=== PATIENT | male | born 1940 | race Caucasian/White ===

== ENCOUNTER 2019-05-21 17:57 | Emergency (ER) | payer MEDICARE ==
--- NOTE | 2019-05-21 18:31 | EDM.PDOC ---
ED HPI GENERAL MEDICAL PROBLEM - General Chief Complaint: General Stated Complaint: HIGH BLOOD PRESSURE Time Seen by Provider: 05/21/19 18:26 Source of Information: Reports: Patient History Limitations: Reports: No Limitations - History of Present Illness INITIAL COMMENTS - FREE TEXT/NARRATIVE: 78-year-old male presents to the ED with concern about elevated systolic blood pressure. His chronic hypertension he is usually controlled well with atenolol 25 mg once daily and Norvasc 5 mg once daily. His blood pressure was as high as 196 systolic. The diastolic is always been under 85. He had it checked at his [id number] is a nurse that's where he went for supper. It was around 176 systolic there. At the walk-in clinic where he went to seek medical care is systolic blood pressure was in the high 150s. He relates down to 148/82. Is better now too. He did take his atenolol earlier today he took it around 1600 hrs. today usually takes it after supper or bedtime. He denies headache. 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 This was 19 years ago 2 in the year 1999. He had bad headaches for good 6 months after this. He's been in [place] for the last 6 months and has an appointment to see Dr. Noland whom has been his primary care physician when he is back in [place] next . He has type 2 diabetes controlled with metformin. He doesn 't usually check his blood sugars. His weight has been stable. He states he does feel better at this point time. It appears that his elevated blood pressure at home made him quite anxious. He has written down his blood pressure recordings however for the last several weeks and they are around 155 systolic indicating that he could achieve a little better control. Diastolics are all under 85. He notices a little fluid around his sock rings at bedtime only. He denies any vertigo symptoms he denies any blurred vision. He denies any headache. Although he states he did have some cervical neck pain which is chronic for him improved with ICY/Hot salve fly into his neck this afternoon. Denies palpitations. Onset: Today Onset Date: 05/21/19 (Elevated blood pressure recordings 3 today. Was 196 systolic at home.) Duration: Hour(s): Location: Reports: Generalized (Generally felt ill earlier today but feels better now after), Other Quality: Reports: Other ([place] kind of achy particularly in his neck back but no nausea or vomiting.) Severity: Mild Improves with: Reports: Other (He seems to be much better less anxious since his blood pressure has come under control.) Worsens with: Reports: None Context: Denies: Activity, Exercise, Lifting, Sick Contact, Trauma, Other Associated Symptoms: Reports: Rash, Seizure, Shortness of Breath, Syncope, Weakness. 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 today which he usually takes after supper.) - Related Data Allergies Allergy/AdvReac Type Severity Reaction Status Date / Time No Known Allergies Allergy Verified 05/21/19 18:10 Home Meds: Home Meds Aspirin 81 mg PO DAILY 05/21/19 [History] Atenolol 50 mg PO DAILY 05/21/19 [History] Cyanocobalamin (Vitamin B-12) [Cyanocobalamin Injection] 1,000 mcg IJ ASDIRECTED 05/21/19 [History] Ibuprofen [Advil] 200 mg PO BID PRN 05/21/19 [History] Ibuprofen/Diphenhydramine Cit [Advil Pm Caplet] 1 each PO BEDTIME 05/21/19 [ History] Losartan Potassium 100 mg PO DAILY 05/21/19 [History] Melatonin 10 mg PO BEDTIME 05/21/19 [History] Multivitamin [Multivitamins] 1 each PO DAILY 05/21/19 [History] Omeprazole 20 mg PO DAILY 05/21/19 [History] Simvastatin [Zocor] 40 mg PO BEDTIME 05/21/19 [History] amLODIPine [Norvasc] 5 mg PO DAILY 05/21/19 [History] metFORMIN HCl [Metformin HCl] 500 mg PO BIDMEALS 05/21/19 [History] Past Medical History HEENT History: Reports: Other (See Below) Other HEENT History: glasses Cardiovascular History: Reports: Hypertension Gastrointestinal History: Reports: Other (See Below) Other Gastrointestinal History: gi surgery Musculoskeletal History: Reports: Other (See Below) Other Musculoskeletal History: neck surgery, bilateral knee scopes Neurological History: Reports: Other (See Below) Other Neuro History: 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 Question whether this was related to uncontrolled hypertension. He was treated conservatively. Endocrine/Metabolic History: Reports: Diabetes, Type II (He is on metformin daily.) Social & Family History - Tobacco Use Smoking Status *Q: Never Smoker Second Hand Smoke Exposure: No - Caffeine Use Caffeine Use: Reports: Tea - Recreational Drug Use Recreational Drug Use: No - Living Situation & Occupation Living situation: Reports: Occupation: Retired ED ROS GENERAL - Review of Systems Review Of Systems: See Below Constitutional: Reports: Malaise, Weakness, Fatigue, Decreased Appetite. Denies : Fever, Chills, Weight Loss HEENT: Reports: Glasses Respiratory: Denies: Shortness of Breath, Wheezing, Pleuritic Chest Pain, Cough , Sputum Cardiovascular: Reports: Blood Pressure Problem, Edema. Denies: Chest Pain, Claudication, Dyspnea on Exertion (Trace edema usually around his socks in the nighttime.), Lightheadedness (See history of present), Orthopnea, Palpitations Endocrine: Reports: Fatigue GI/Abdominal: Reports: No Symptoms : Reports: Frequency, Other (Usually nocturia 2.) Musculoskeletal: Reports: Neck Pain ( Is a lumbar corset to support his back. chronic cervical neck pain from degenerative arthritis. ), Back Pain ( Chronic low back pain since being bucked off a horse 40 years ago. unclear whether he suffered any significant pelvic fractures or lumbar spine fractures at that time.) Skin: Reports: No Symptoms Neurological: Reports: No Symptoms. Denies: Confusion, Dizziness, Headache, Numbness, Paresthesia, Pre-Existing Deficit, Seizure, Syncope, Tingling, Tremors , Trouble Speaking, Difficulty Walking, Weakness, Change in Speech, Gait Disturbance Psychiatric: Reports: Anxiety Hematologic/Lymphatic: Reports: No Symptoms Immunologic: Reports: No Symptoms ED EXAM, GENERAL - Physical Exam Exam: See Below Exam Limited By: No Limitations General Appearance: Alert, WD/WN, Anxious, Other (Mildly anxious. BP is 158/76 but came down to 148/82. Sats are 9800% on room air. Pulse was in the 70s. Maternal rate 18) Eye Exam: Bilateral Eye: Normal Inspection, PERRL Throat/Mouth: Normal Inspection, Normal Lips, Normal Oropharynx Head: Atraumatic, Normocephalic Neck: Normal Inspection, Supple, Non-Tender, Full Range of Motion. No: Carotid Bruit, Lymphadenopathy (L), Lymphadenopathy (R) Respiratory/Chest: No Respiratory Distress, Lungs Clear, Normal Breath Sounds, No Accessory Muscle Use Cardiovascular: Normal Peripheral Pulses, Regular Rate, Rhythm, No JVD, No Murmur, No Rub. No: No Edema Peripheral Pulses: 1+: Posterior Tibial (L), Posterior Tibial (R), Dorsalis Pedis (L), Dorsalis Pedis (R) GI/Abdominal: Normal Bowel Sounds, Soft, Non-Tender, No Organomegaly, No Abnormal Bruit, No Mass, Pelvis Stable Back Exam: Decreased Range of Motion. No: CVA Tenderness (L), CVA Tenderness (R ) Extremities: Pedal Edema (Trace pedal edema ankles.), Other Neurological: Alert (Evidence of mild left sensory changes both knees with loss of internal/external rotation of both hips compare with most arthritic change.) , Oriented, CN II-XII Intact, Normal Cognition Psychiatric: Normal Affect, Anxious Skin Exam: Warm, Dry, Intact (Mildly anxious.), Normal Color, No Rash EKG INTERPRETATION EKG Date: 05/21/19 Time: 19:17 Rhythm: NSR Rate (Beats/Min): 70 [place]: Normal P-Wave: Present (P-wave is inverted in V1.) QRS: Other (Initial poor R-wave progression. Decreased voltage limb leads.) ST-T: Other (T-wave flattening in aVL.) EKG Interpretation Comments: Borderline ECG Course - Vital Signs Last Recorded V/S: Last Vital Signs Temp 36.5 C 05/21/19 18:09 Pulse 71 05/21/19 18:09 Resp 18 05/21/19 18:09 BP 158/76 H 05/21/19 18:09 Pulse Ox 98 05/21/19 18:09 - Orders/Labs/Meds Orders: Active Orders 24 hr Category Date Time Status EKG Documentation Completion [RC] STAT Care 05/21/19 19:00 Active Chest 1V Frontal [CR] Stat Exams 05/21/19 19:01 Taken Labs: Laboratory Tests 05/21/19 05/21/19 05/21/19 Range/Units 19:13 19:13 19:13 WBC 9.91 H (4.23-9.07) K/mm3 RBC 4.86 (4.63-6.08) M/mm3 Hgb 14.3 (13.7-17.5) gm/dl Hct 40.9 (40.1-51.0) % MCV 84.2 (79.0-92.2) fl MCH 29.4 (25.7-32.2) pg MCHC 35.0 (32.2-35.5) g/dl RDW Std Deviation 38.7 (35.1-43.9) fL Plt Count 166 (163-337) K/mm3 MPV 10.8 (9.4-12.3) fl Neut % (Auto) 66.6 (34.0-67.9) % Lymph % (Auto) 21.7 L (21.8-53.1) % [place] % (Auto) 9.6 (5.3-12.2) % Eos % (Auto) 1.9 (0.8-7.0) Baso % (Auto) 0.2 (0.1-1.2) % Neut # (Auto) 6.60 H (1.78-5.38) K/mm3 Lymph # (Auto) 2.15 (1.32-3.57) K/mm3 [place] # (Auto) 0.95 H (0.30-0.82) K/mm3 Eos # (Auto) 0.19 (0.04-0.54) K/mm3 Baso # (Auto) 0.02 (0.01-0.08) K/mm3 Sodium 136 (136-145) mEq/L Potassium 4.4 (3.5-5.1) mEq/L Chloride 101 (98-107) mEq/L Carbon Dioxide 30 (21-32) mEq/L Anion Gap 9.4 (5-15) BUN 13 (7-18) mg/dL Creatinine 1.0 (0.7-1.3) mg/dL Est Cr Clr Drug Dosing 57.95 mL/min Estimated GFR (MDRD) > 60 (>60) mL/min BUN/Creatinine Ratio 13.0 L (14-18) Glucose 126 H (83-115) mg/dL Hemoglobin A1c 6.30 H (4.50-6.20) % Calcium 9.3 (8.5-10.1) mg/dL Magnesium 1.8 (1.8-2.4) mg/dl Total Bilirubin 0.5 (0.2-1.0) mg/dL AST 15 (15-37) U/L ALT 17 (16-63) U/L Alkaline Phosphatase 96 (46-116) U/L Troponin I < 0.017 (0.00-0.056) ng/mL C-Reactive Protein < 0.2 (<1.0) mg/dL NT-Pro-B Natriuret Pep (0-450) pg/mL Total Protein 7.1 (6.4-8.2) g/dl Albumin 3.8 (3.4-5.0) g/dl Globulin 3.3 gm/dL Albumin/Globulin Ratio 1.2 (1-2) Cholesterol 123 (<200) mg/dL LDL Cholesterol Direct 74 (<100) mg/dL HDL Cholesterol 35.0 L (40-59) mg/dL 05/21/19 Range/Units 19:13 WBC (4.23-9.07) K/mm3 RBC (4.63-6.08) M/mm3 Hgb (13.7-17.5) gm/dl Hct (40.1-51.0) % MCV (79.0-92.2) fl MCH (25.7-32.2) pg MCHC (32.2-35.5) g/dl RDW Std Deviation (35.1-43.9) fL Plt Count (163-337) K/mm3 MPV (9.4-12.3) fl Neut % (Auto) (34.0-67.9) % Lymph % (Auto) (21.8-53.1) % [place] % (Auto) (5.3-12.2) % Eos % (Auto) (0.8-7.0) Baso % (Auto) (0.1-1.2) % Neut # (Auto) (1.78-5.38) K/mm3 Lymph # (Auto) (1.32-3.57) K/mm3 [place] # (Auto) (0.30-0.82) K/mm3 Eos # (Auto) (0.04-0.54) K/mm3 Baso # (Auto) (0.01-0.08) K/mm3 Sodium (136-145) mEq/L Potassium (3.5-5.1) mEq/L Chloride (98-107) mEq/L Carbon Dioxide (21-32) mEq/L Anion Gap (5-15) BUN (7-18) mg/dL Creatinine (0.7-1.3) mg/dL Est Cr Clr Drug Dosing mL/min Estimated GFR (MDRD) (>60) mL/min BUN/Creatinine Ratio (14-18) Glucose (83-115) mg/dL Hemoglobin A1c (4.50-6.20) % Calcium (8.5-10.1) mg/dL Magnesium (1.8-2.4) mg/dl Total Bilirubin (0.2-1.0) mg/dL AST (15-37) U/L ALT (16-63) U/L Alkaline Phosphatase (46-116) U/L Troponin I (0.00-0.056) ng/mL C-Reactive Protein (<1.0) mg/dL NT-Pro-B Natriuret Pep 177 (0-450) pg/mL Total Protein (6.4-8.2) g/dl Albumin (3.4-5.0) g/dl Globulin gm/dL Albumin/Globulin Ratio (1-2) Cholesterol (<200) mg/dL LDL Cholesterol Direct (<100) mg/dL HDL Cholesterol (40-59) mg/dL - Radiology Interpretation Free Text/Narrative:: 78-year-old male attends the ED after being sent over from the walk-in clinic. Patient has a history of chronic hypertension. He checked his blood pressure at home today because he wasn't feeling well and he got a systolic blood pressure 196. Is much higher than his norm which is been in the 150s. He went to his [id number] for supper and she was a PA. She states his systolic blood pressure was 176. Advised him to go the walk-in clinic which she did. They found an elevated blood pressure in the mid septum to the ED. took his atenolol 25 mg dose at 1600 hrs. today and when he arrived here his blood pressure is 148/82. He is written down blood pressures that he's been checking over the last 2 weeks and his average systolic blood pressures been in the 150s. His diastolics are all under 85. He therefore has very mild systolic hypertension. Quite anxious in this regard as he had a previous injury of cerebral hemorrhage right frontal cortex in year 1999. He recovered from this completely. He reports he hasn't 's appointment with Dr. Noland next . He's been in [place] for the last 6 months and hasn't been following up with any doctor per se. Plan routine labs , including a glycosylated protein and his serum cholesterol as he is supposed to have labs next week prior to seeing Dr. Noland. He will have a 1 view portable chest x-ray and ECG as well. At present he requires no treatment for his blood pressure. - Re-Assessments/Exams Free Text/Narrative Re-Assessment/Exam: 05/21/19 19:51 blood pressure remains well controlled at 143/75. Chest x-ray reveals clear lung hawley. Some prominence of the right pulmonary artery appreciated. Cardiac silhouette however is within normal limits. 05/21/19 20:09 Labs reveal a normal white count at 9.91. Automated differential shows 66% neutrophils. Hemoglobin is 14.3 with hematocrit of 40.9. Platelet count 166,000. MCV is normal. Chemistry shows a sodium of 136 and a potassium of 4.4. Chloride is 101 with a bicarbonate of 30. Anion gap is 9.4. BUN is 13 with a creatinine of 1.0. GFR remains greater than 60. Glucose is 126 and his glycosylated protein is 6.30. Calcium is 9.3 with a magnesium 1.8. Liver function is normal troponin I is less than 0.017. C-reactive protein less than 0.2. Total protein is 7.1 with an albumin fraction of 3.8. Cholesterol shows 8 total of 123 and LDL of 74 and an HDL of 35.0 making his risk ratio less a little greater than 3. Therefore his labs are near perfect. Suggest continue to check his blood pressures on a daily or twice-daily basis until he sees Dr. Noland on . Leave it up to him whether or not to gradually increase his Norvasc to control mild systolic hypertension. Patient and his son were so advised. No changes made to medications at this time. Departure - Departure Time of Disposition: 20:18 Disposition: Home, Self-Care 01 Condition: Fair Clinical Impression: Labile essential hypertension - Discharge Information *PRESCRIPTION DRUG MONITORING PROGRAM REVIEWED*: Not Applicable *COPY OF PRESCRIPTION DRUG MONITORING REPORT IN PATIENT ISAIAS: Not Applicable Referrals: Alvaro Noland MD [Primary Care Provider] - Forms: ED Department Discharge Additional Instructions: Evaluation the emergency room today in regards to persistent elevation of your top number of your blood pressure called the systolic blood pressure most of the day. Is reportedly as high as 196 for a period of time. Her roommate is come down into the 140s and has remained there. I suspect this is because you took your atenolol tablet at 1600 hrs. today which starting to work by the time he came to the ED. Lab work chest x-ray, and ECG were done today and all do not show any abnormalities. There is no sign of significant heart disease related to uncontrolled blood pressure. This means for the most part your blood pressure is well controlled on current treatment regimen. Some days the blood pressure will be what we call labile which means like a roller coaster going up and down. He stays as you may have to take an extra atenolol tablet to bring it under control or take an early as you did today. His follow-up with Dr. Noland on as planned and check your blood pressures twice or 3 times daily up until you see him which will help us determine whether or not you need an adjustment of your blood pressure medication. - My Orders Last 24 Hours: My Active Orders 05/21/19 19:00 EKG Documentation Completion [RC] STAT 05/21/19 19:01 Chest 1V Frontal [CR] Stat - Assessment/Plan Last 24 Hours: My Active Orders 05/21/19 19:00 EKG Documentation Completion [RC] STAT 05/21/19 19:01 Chest 1V Frontal [CR] Stat
[2019-05-21 19:39] LABS: HEMOGLOBIN A1C 6.3 % (4.50-6.20)
--- NOTE | 2019-05-22 15:09 | CR ---
Chest: Portable view of the chest was obtained. Comparison: No prior chest x-ray. Heart size and mediastinum are within normal limits for portable technique. Lungs are clear with no acute parenchymal change. Bony structures are grossly intact. Impression: 1. Nothing acute is seen on portable chest x-ray. Diagnostic code #2
== END 2019-05-21 20:28 | disposition home or self-care (01) ==
LOC: JD.ED 17:57
DX: I10 Essential (primary) hypertension (principal); Z79.899 Other long term (current) drug therapy
CPT/HCPCS: 36415; 71045; 71045-26; 80053; 82465; 83036; 83718; 83721; 83735; 83880; 84484; 85025; 86140; 93005; 93010; 99283; 99284-25

== ENCOUNTER 2021-07-16 19:28 | Emergency (ER) | payer MEDICARE ==
--- NOTE | 2021-07-16 20:14 | EDM.PDOC ---
ED HPI GENERAL MEDICAL PROBLEM - General Chief Complaint: Respiratory Problem Stated Complaint: RESPIRATORY ISSUES Time Seen by Provider: 07/16/21 19:41 Source of Information: Reports: Patient History Limitations: Reports: No Limitations - History of Present Illness INITIAL COMMENTS - FREE TEXT/NARRATIVE: Mr. Alicea is a very pleasant 80-year-old gentleman who now presents the ED stating that he has had nasal congestion with sinus drainage causing a nonproductive cough for about 2 months, along with chest tightness. He states that he was seen at the walk-in clinic on 05/27/2021. He states that a chest x- ray was negative, but that no other tests were performed. He was prescribed Mucinex cough syrup, and also began taking sbtl-hwb-nwdptbo Robitussin. When his symptoms persisted, he saw Maegan Medina NP, in the clinic. He states that no tests were performed, but that he was prescribed an albuterol MDI, which he began using 3 or 4 times a day. He states that it did not help. He was then seen again at the walk-in clinic on 07/03/2021, where a second checks x-ray was again unremarkable. He states that no other tests were performed. He was prescribed a Z-Roberto, which he took as prescribed. He states that it did not help. The following week, he spoke with his PCP over the phone, and was prescribed a nebulizer machine. It also did not help. He was then seen a second time by Maegan Medina NP, this past 07/13/2021. He states that again no tests were done, but he was prescribed cefdinir, which he is still on. He states that he is still no better. Here in the ED this evening, the patient's initial BP was found to be elevated at 160/70, otherwise, he is hemodynamically stable, afebrile, saturating 95% on room air. He appears to be relatively comfortable, in no acute distress. The patient denies having a recent fever, chills, sore throat, ear pain, dyspnea, chest pain, palpitations, nausea, vomiting, constipation, diarrhea, abdominal pain, urinary symptoms, recent weight gain or weight loss, recent bloody bowel movements or black bowel movements, recent joint aches, headaches, or rashes. The patient's PCP is Dr. Alvaro Noland. He goes to the [place] to fill his prescriptions. He has received 2 COVID vaccinations + a booster vaccination, although no influenza vaccination this season. - Related Data Allergies Allergy/AdvReac Type Severity Reaction Status Date / Time No Known Allergies Allergy Verified 07/16/21 19:43 Home Meds: Home Meds Aspirin 81 mg PO DAILY 05/21/19 [History] Cyanocobalamin (Vitamin B-12) [Cyanocobalamin Injection] 1,000 mcg IJ ASDIRECTED 05/21/19 [History] Ibuprofen [Advil] 200 mg PO BID PRN 05/21/19 [History] Ibuprofen/Diphenhydramine Cit [Advil Pm Caplet] 1 each PO BEDTIME 05/21/19 [History] Losartan Potassium 100 mg PO DAILY 05/21/19 [History] Melatonin 10 mg PO BEDTIME 05/21/19 [History] Multivitamin [Multivitamins] 1 each PO DAILY 05/21/19 [History] Omeprazole 20 mg PO DAILY 05/21/19 [History] Simvastatin [Zocor] 40 mg PO BEDTIME 05/21/19 [History] amLODIPine [Norvasc] 5 mg PO DAILY 05/21/19 [History] atenoloL [Atenolol] 50 mg PO DAILY 05/21/19 [History] metFORMIN HCl [Metformin HCl] 500 mg PO BIDMEALS 05/21/19 [History] Past Medical History HEENT History: Reports: Impaired Vision (wears glasses) Cardiovascular History: Reports: Hypertension Neurological 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) Endocrine/Metabolic History: Reports: Diabetes, Type II - Past Surgical History HEENT Surgical History: Reports: Oral Surgery (dental extractions) GI Surgical History: Reports: Other (See Below) (Gastric tumor excision 2002) Oncologic Surgical History: Reports: Other (See Below) (Lower lip SCC excision) Social & Family History - Tobacco Use Tobacco Use Status *Q: Never Tobacco User - Caffeine Use Caffeine Use: Reports: Tea - Alcohol Use Alcohol Use History: No - Recreational Drug Use Recreational Drug Use: No - Living Situation & Occupation Living situation: Reports: , Alone Occupation: Retired ED ROS GENERAL - Review of Systems Review Of Systems: Comprehensive ROS is negative, except as noted in HPI. ED EXAM, GENERAL - Physical Exam Exam: See Below Exam Limited By: No Limitations General Appearance: Alert, WD/WN, No Apparent Distress Eye Exam: Bilateral Eye: EOMI, Normal Inspection Ears: Normal External Exam, Normal Canal, Normal TMs, Hearing Loss Nose: Normal Inspection, Normal Mucosa, No Blood Throat/Mouth: Normal Inspection, Normal Lips, Normal Teeth, Normal Gums, Normal Oropharynx, Normal Voice, No Airway Compromise Head: Atraumatic, Normocephalic Neck: Normal Inspection, Supple, Non-Tender, Full Range of Motion. No: Lymphadenopathy (L), Lymphadenopathy (R) Respiratory/Chest: No Respiratory Distress, Lungs Clear, Normal Breath Sounds, No Accessory Muscle Use. No: Decreased Breath Sounds, Crackles, Rhonchi, Wheezing, Stridor, Prolonged Expiration Cardiovascular: Normal Peripheral Pulses, Regular Rate, Rhythm, No Edema, No Gallop, No JVD, No Murmur, No Rub Peripheral Pulses: 3+: Radial (L), Radial (R) GI/Abdominal: Normal Bowel Sounds, Soft, Non-Tender, No Organomegaly, No Distention, No Abnormal Bruit, No Mass Back Exam: Normal Inspection, Full Range of Motion, NT Extremities: Normal Inspection, Normal Range of Motion, No Pedal Edema, Normal Capillary Refill Neurological: Alert, Oriented, Normal Cognition, No Motor/Sensory Deficits Psychiatric: Normal Affect Skin Exam: Warm, Dry, Intact, Normal Color, No Rash Course - Vital Signs Last Recorded V/S: Last Vital Signs Temp 36.9 C 07/16/21 19:43 Pulse 87 07/16/21 19:43 Resp 18 07/16/21 19:43 BP 160/70 H 07/16/21 19:43 Pulse Ox 95 07/16/21 19:43 - Orders/Labs/Meds Labs: Laboratory Tests 07/16/21 07/16/21 07/16/21 Range/Units 20:17 20:23 20:23 WBC 12.15 H (4.23-9.07) K/mm3 RBC 4.88 (4.63-6.08) M/mm3 Hgb 14.0 (13.7-17.5) gm/dl Hct 41.1 (40.1-51.0) % MCV 84.2 (79.0-92.2) fl MCH 28.7 (25.7-32.2) pg MCHC 34.1 (32.2-35.5) g/dl RDW Std Deviation 37.6 (35.1-43.9) fL Plt Count 200 (163-337) K/mm3 MPV 9.9 (9.4-12.3) fl Neutrophils % (Manual) 78 H (40-60) % Band Neutrophils % 0 (0-10) % Lymphocytes % (Manual) 14 L (20-40) % Atypical Lymphs % 0 % Monocytes % (Manual) 4 (2-10) % Eosinophils % (Manual) 3 (0.8-7.0) % Basophils % (Manual) 1 (0.2-1.2) Platelet Estimate Adequate RBC Morph Comment Normal D-Dimer, Quantitative 0.57 H (0.19-0.50) mg/L Sodium (136-145) mEq/L Potassium (3.5-5.1) mEq/L Chloride (98-107) mEq/L Carbon Dioxide (21-32) mEq/L Anion Gap (5-15) BUN (7-18) mg/dL Creatinine (0.7-1.3) mg/dL Est Cr Clr Drug Dosing mL/min Estimated GFR (MDRD) (>60) mL/min BUN/Creatinine Ratio (14-18) Glucose (70-99) mg/dL Calcium (8.5-10.1) mg/dL Total Bilirubin (0.2-1.0) mg/dL AST (15-37) U/L ALT (16-63) U/L Alkaline Phosphatase (46-116) U/L Troponin I (0.00-0.056) ng/mL NT-Pro-B Natriuret Pep (0-450) pg/mL Total Protein (6.4-8.2) g/dl Albumin (3.4-5.0) g/dl Globulin gm/dL Albumin/Globulin Ratio (1-2) Influenza Type A RNA Negative (NEGATIVE) Influenza Type B RNA Negative (NEGATIVE) SARS-CoV-2 RNA (ELVIA) Negative (NEGATIVE) 07/16/21 07/16/21 Range/Units 20:23 20:23 WBC (4.23-9.07) K/mm3 RBC (4.63-6.08) M/mm3 Hgb (13.7-17.5) gm/dl Hct (40.1-51.0) % MCV (79.0-92.2) fl MCH (25.7-32.2) pg MCHC (32.2-35.5) g/dl RDW Std Deviation (35.1-43.9) fL Plt Count (163-337) K/mm3 MPV (9.4-12.3) fl Neutrophils % (Manual) (40-60) % Band Neutrophils % (0-10) % Lymphocytes % (Manual) (20-40) % Atypical Lymphs % % Monocytes % (Manual) (2-10) % Eosinophils % (Manual) (0.8-7.0) % Basophils % (Manual) (0.2-1.2) Platelet Estimate RBC Morph Comment D-Dimer, Quantitative (0.19-0.50) mg/L Sodium 125 L D (136-145) mEq/L Potassium 4.6 (3.5-5.1) mEq/L Chloride 92 L (98-107) mEq/L Carbon Dioxide 25 (21-32) mEq/L Anion Gap 12.6 (5-15) BUN 13 (7-18) mg/dL Creatinine 1.1 (0.7-1.3) mg/dL Est Cr Clr Drug Dosing 50.95 mL/min Estimated GFR (MDRD) > 60 (>60) mL/min BUN/Creatinine Ratio 11.8 L (14-18) Glucose 159 H (70-99) mg/dL Calcium 8.8 (8.5-10.1) mg/dL Total Bilirubin 0.6 (0.2-1.0) mg/dL AST 23 (15-37) U/L ALT 25 (16-63) U/L Alkaline Phosphatase 96 (46-116) U/L Troponin I < 0.017 (0.00-0.056) ng/mL NT-Pro-B Natriuret Pep 106 (0-450) pg/mL Total Protein 7.4 (6.4-8.2) g/dl Albumin 3.8 (3.4-5.0) g/dl Globulin 3.6 gm/dL Albumin/Globulin Ratio 1.1 (1-2) Influenza Type A RNA (NEGATIVE) Influenza Type B RNA (NEGATIVE) SARS-CoV-2 RNA (ELVIA) (NEGATIVE) - Re-Assessments/Exams Free Text/Narrative Re-Assessment/Exam: 07/16/21 20:09 The patient's history is most consistent with a cough due to postnasal drip, m ost likely due to allergic rhinitis, less likely due to a viral URI. Pneumonia is highly unlikely, however, this is, essentially, his 6th visit for the same symptoms, therefore, in order to put this to rest once and for all, I have ordered several blood tests, a chest x-ray, and a swab for the SARS-CoV-2 virus and influenza A + B viruses. 07/16/21 21:54 Two-view chest radiograph appears to be grossly normal. The cardiac silhouette is within normal limits. No pulmonary vascular congestion. No pleural effusions. No focal infiltrate. Pleural thickening versus atelectasis noted at the left base. No pneumothorax. Formal read per the Radiologist pending. The patient's CBC is remarkable for mild leukocytosis of 12.15, but with 0% bandemia, and the remainder of his CBC being unremarkable. His CMP is remarkable for hyponatremia of 125, and mild hyperglycemia of 159, with the remainder of his CMP being unremarkable. His troponin is undetectably low. His pro-BNP is within normal limits at 106. His D-dimer is slightly elevated at 0.57. His swab for the SARS-CoV-2 virus and influenza A + B viruses is negative for all. 07/16/21 22:04 Test results discussed with the patient. As above, the patient has significant hyponatremia. He confirms that he eats a very low salt diet. I recommended that he increase the salt in his diet, somewhat. That may cause his blood pressure to go up a bit. With respect to his presenting symptoms, I suspect that the patient is suffering from allergic rhinitis. I recommended that he purchase and begin using an phqk-ilw-mcfjycw nasal steroid spray, such as fluticasone or mometasone. I recommended that he discontinue the Mucinex, Robitussin, albuterol, and cefdinir. The patient has an appointment to see his Dr. Noland this Friday - I would like him to keep that appointment. Departure - Departure Time of Disposition: 22:06 Disposition: Home, Self-Care 01 Condition: Good Clinical Impression: Allergic rhinitis - Discharge Information *PRESCRIPTION DRUG MONITORING PROGRAM REVIEWED*: Not Applicable *COPY OF PRESCRIPTION DRUG MONITORING REPORT IN PATIENT ISAIAS: Not Applicable Instructions: Allergic Rhinitis, Adult, [id number] Referrals: Alvaro Noland MD [Primary Care Provider] - Forms: ED Department Discharge Additional Instructions: You were seen in the emergency room for approximately 2 months of a dry cough with postnasal drip. Work-up in the ER included several blood tests, a swab for the SARS-CoV-2 virus and influenza A + B viruses, and a chest x-ray. Your blood work found your sodium to be significantly depressed at 125. This is most likely due to your eating a low-salt diet. The remainder of your work-up was unremarkable. Based on your history, physical exam, and ER tests, the cause of your symptoms is most likely due to allergic rhinitis, also known as seasonal allergies. Going forward, we recommend that you increase the salt in your diet, somewhat. Be aware that that may cause your blood pressure to go up a bit. We recommend that you purchase an kqxk-dyf-iryygmz nasal steroid spray, such as Flonase (fluticasone) or Nasonex (mometasone), and use as directed on the label. We recommend that you discontinue using the Mucinex, Robitussin, albuterol, and cefdinir. We recommend that you throw them in the trash - do not flush them down the toilet or pour them down the drain. We recommend that you follow-up with your PCP, Dr. Alvaro Noland, at your previously scheduled appointment this coming 07/18/2021. If any other problems, please do not hesitate to return to the ER. Sepsis Event Note (ED) - Evaluation Sepsis Screening Result: No Definite Risk
[2021-07-16 21:03] LABS: CORONAVIRUS COVID-19 NAA NEGATIVE (NEGATIVE)
--- NOTE | 2021-07-17 07:00 | CR ---
Chest: PA and lateral views of the chest were obtained. Comparison: Prior chest x-ray of 05/21/19. Linear density is seen within the left lung base compatible with focal area of atelectasis. Lungs otherwise are clear. Heart size and mediastinum are normal. Bony structures show scattered degenerative change within the spine. Impression: 1. Atelectasis within the left lung base. 2. Nothing acute is otherwise seen on 2-view chest x-ray. Diagnostic code #2
== END 2021-07-16 22:20 | disposition home or self-care (01) ==
LOC: JD.ED 19:28
DX: J30.9 Allergic rhinitis, unspecified (principal); E11.9 Type 2 diabetes mellitus without complications; I10 Essential (primary) hypertension; Z86.73 Personal history of transient ischemic attack (TIA), and cerebral infarction without residual deficits; Z79.82 Long term (current) use of aspirin; Z79.899 Other long term (current) drug therapy; Z79.84 Long term (current) use of oral hypoglycemic drugs; Z20.822 Contact with and (suspected) exposure to COVID-19
CPT/HCPCS: 0240U; 36415; 71046; 80053; 83880; 84484; 85007; 85027; 85379; 99283

== ENCOUNTER 2023-12-18 16:10 | Emergency (ER) | payer MEDICARE | END 2023-12-18 17:46 | disposition home or self-care (01) | LOC: JD.ED 16:10 | DX: I10 Essential (primary) hypertension (principal); F41.8 Other specified anxiety disorders; E78.00 Pure hypercholesterolemia, unspecified; E11.9 Type 2 diabetes mellitus without complications; Z79.84 Long term (current) use of oral hypoglycemic drugs; Z79.899 Other long term (current) drug therapy | CPT/HCPCS: 99283 ==

== ENCOUNTER 2025-06-09 10:27 | Day surgery (SDC) | payer MEDICARE ==
[2025-06-09] MEDS: Tetracaine HCl/PF 0.5% 4 ML Bottle EYEBOTH SCH (07:28)
[2025-06-09] MEDS: Cefuroxime 10 MG/ML SYRINGE EYERT SCH (07:28)
[2025-06-09] MEDS: Pilocarpine 4% Ophth Soln 15 ML Bot EYERT SCH (07:28)
[2025-06-09] MEDS: Lidocaine 1% PF 2 ML SDV INJECT SCH (07:28)
[2025-06-09] MEDS: Polymyxin B/Trimethoprim 10 ML Bottle EYERT SCH (07:29)
[2025-06-09] MEDS: Tropicamide 1% Ophth Soln 3 ML Bottle EYERT SCH (11:00)
== END 2025-06-09 12:20 | disposition home or self-care (01) ==
LOC: JD.SDS 10:27
PROVIDERS: ATTEND Ophthalmology
DX: E11.36 Type 2 diabetes mellitus with diabetic cataract (principal); H25.813 Combined forms of age-related cataract, bilateral; H21.81 Floppy iris syndrome; H21.40 Pupillary membranes, unspecified eye; H35.3131 Nonexudative age-related macular degeneration, bilateral, early dry stage; H35.363 Drusen (degenerative) of macula, bilateral; H11.153 Pinguecula, bilateral; H35.373 Puckering of macula, bilateral; H43.813 Vitreous degeneration, bilateral; I10 Essential (primary) hypertension; Z79.82 Long term (current) use of aspirin; Z79.84 Long term (current) use of oral hypoglycemic drugs; Z79.899 Other long term (current) drug therapy
CPT/HCPCS: A9270-GY; J0697; J3490

== ENCOUNTER 2025-07-07 10:30 | Day surgery (SDC) | payer MEDICARE ==
[~2025-07-07 10:30] MED LIST: Pilocarpine 4% Ophth Soln 15 ML Bot EYELF SCH
[2025-07-07] MEDS: Polymyxin B/Trimethoprim 10 ML Bottle EYELF SCH (10:40)
[2025-07-07] MEDS: Tropicamide 1% Ophth Soln 3 ML Bottle EYELF SCH (10:46)
[2025-07-07] MEDS: Tetracaine HCl/PF 0.5% 4 ML Bottle EYEBOTH SCH (11:06)
[2025-07-07] MEDS: Lidocaine 1% PF 2 ML SDV INJECT SCH (12:10)
[2025-07-07] MEDS: Cefuroxime 10 MG/ML SYRINGE EYELF SCH (12:24)
== END 2025-07-07 12:35 ==
LOC: JD.SDS 10:30
PROVIDERS: ATTEND Ophthalmology
DX: E11.36 Type 2 diabetes mellitus with diabetic cataract (principal); H25.812 Combined forms of age-related cataract, left eye; H21.81 Floppy iris syndrome; H21.40 Pupillary membranes, unspecified eye; H35.3131 Nonexudative age-related macular degeneration, bilateral, early dry stage; H35.363 Drusen (degenerative) of macula, bilateral; H35.373 Puckering of macula, bilateral; H43.813 Vitreous degeneration, bilateral; H52.31 Anisometropia; I10 Essential (primary) hypertension; E78.00 Pure hypercholesterolemia, unspecified; Z96.1 Presence of intraocular lens; Z79.82 Long term (current) use of aspirin; Z79.84 Long term (current) use of oral hypoglycemic drugs; Z79.899 Other long term (current) drug therapy
CPT/HCPCS: 66982; A9270; J0697; J3490